=== PATIENT | male | born 1950 | race Caucasian/White ===

== ENCOUNTER → 2024-10-08 | Outpatient (CLI) | payer MEDICARE, BC, SELFPAY ==
[2024-10-08 11:33] LABS: Glucose 118 mg/dL (74-106)
[2024-10-08 11:39] LABS: Glucose Estimated Average 120 mg/dL (80-131); Hemoglobin A1C 5.8 % Hgb (4.8-6.0)
== END | disposition home or self-care (01) ==
PROVIDERS: PCP Family Medicine; Referring Provider Family Medicine; Visit Provider Family Medicine
DX: R73.9 Hyperglycemia, unspecified (principal)
CPT/HCPCS: 36415; 82947; 83036

== ENCOUNTER 2025-03-13 08:15 | Day surgery (SDC) | payer MEDICARE, BC, SELFPAY ==
[2025-03-13] VITALS (9 sets, daily range): BP systolic 121–178; BP diastolic 68–91; PULSE 52–74; RESP 14–19; TEMP 36.4–36.9; O2SAT 93–95; BMI 37.2
[2025-03-13] MEDS: SODIUM CHLORIDE 0.9% 500 ML 500 ML 20 ML IV (10:05)
[2025-03-13] MEDS: BENZOCAINE 20% (Hurricaine) SPRAY 1 DOSE TOP (10:06)
[2025-03-13] MEDS: DiphenhydrAMINE INJ 50 MG/ML VIAL 25 MG IVP (10:06)
[2025-03-13] MEDS: MIDAZOLAM INJ 1 MG/ML VIAL 2 ML (ASD USE ONLY) 2 MG IVP (10:14)
[2025-03-13] MEDS: fentaNYL CIT INJ 50 mCg/ML AMP 2ML (ASD USE ONLY) IVP (10:14)
== END 2025-03-13 11:05 | disposition home or self-care (01) ==
PROVIDERS: PCP Family Medicine; Referring Provider Specialist; Visit Provider Specialist
PROC: (CPT 43239; principal; 2025-03-13 09:30)
DX: K20.90 Esophagitis, unspecified without bleeding (principal); K22.2 Esophageal obstruction; K29.70 Gastritis, unspecified, without bleeding; K29.50 Unspecified chronic gastritis without bleeding; B96.81 Helicobacter pylori [H. pylori] as the cause of diseases classified elsewhere; K29.80 Duodenitis without bleeding
CPT/HCPCS: 43248; 43239; C1769; J1200; J2250; J3010; J7040; A9270

== ENCOUNTER → 2025-07-22 | Outpatient (CLI) | payer MEDICARE, BC, SELFPAY ==
[2025-07-22 12:46] LABS: Urea Breath Test Negative (Negative)
== END | disposition home or self-care (01) ==
PROVIDERS: PCP Family Medicine; Referring Provider Specialist; Visit Provider Specialist
DX: E78.5 Hyperlipidemia, unspecified (principal)
CPT/HCPCS: 83013; 83014